=== PATIENT | female | born 1995 | race Caucasian/White ===

== ENCOUNTER 2022-03-07 19:13 | Emergency (ER) | payer SELFPAY ==
[~2022-03-07] VITALS: Ht 152.4 cm; Wt 59.0 kg
[2022-03-07 19:15] VITALS: BP 139/79
--- NOTE | 2022-03-07 19:21 | NUR ---
PT ASSISTED TO BED #1
--- NOTE | 2022-03-07 19:21 | NUR ---
TO ER BED 1
[2022-03-07] MEDS ORDERED: MORPHINE SULFATE 4 MG/ML SYR IVP ONE (19:35)
[2022-03-07] MEDS ORDERED: ONDANSETRON 4 MG/2 ML VIAL IVP ONE ×2 (19:35→22:15)
[2022-03-07] MEDS ORDERED: NACL 0.9% 1,000 ML IV ONE ×2 (19:40→21:35)
[2022-03-07] MEDS ORDERED: KETOROLAC 15 MG/ML VIAL IVP ONE (19:40)
[2022-03-07] MEDS ORDERED: diphenhydrAMINE 50 MG/ML VIAL IVP ONE (19:45)
[2022-03-07] MEDS ORDERED: PROCHLORPERAZINE 10 MG/2 ML VIAL IVP ONE (19:45)
[2022-03-07 19:54] LABS: BASOPHILS % (AUTO) 0.5 % (0.0-2.0); EOSINOPHILS % (AUTO) 0.1 % (0.0-4.0); HEMATOCRIT 41.4 % (36-48); HEMOGLOBIN 13.7 g/dL (12.0-16.0); LYMPHOCYTES # (AUTO) 0.8 K/uL (2.5-16.5); LYMPHOCYTES % (AUTO) 7.8 % (20.5-51.1); MEAN CORPUSCULAR HEMOGLOBIN 27 pg (27-31); MEAN CORPUSCULAR HGB CONC 33 g/dL (33-37); MEAN CORPUSCULAR VOLUME 82.5 fL (80-94); MONOCYTES # (AUTO) 0.5 K/uL (0.8-1.0); MONOCYTES % (AUTO) 4.7 % (1.7-9.3); NEUTROPHILS # (AUTO) 8.8 K/uL (1.8-7.7); NEUTROPHILS % (AUTO) 86.9 % (42.2-75.2); PLATELET COUNT (AUTO) 213 K/uL (140-450); RED BLOOD CELL COUNT(AUTO) 5.02 MIL/uL (4.20-5.40); RED CELL DISTRIBUTION WIDTH 14.3 % (11.6-13.7); WHITE BLOOD COUNT (AUTO) 10.2 K/uL (4.8-10.8)
--- NOTE | 2022-03-07 20:07 | NUR ---
27 yo/f presents to ED w c/o n/v x approx 10 times, + generalized abdominal pain 8/10 constant non-rad x1 day non-tender, chills. Pt denies any fevers, diarhhea, blood in emesis, chest pain, or sob. Pmh: denies allergies: denies
[2022-03-07 20:10] LABS: ALBUMIN 4.3 g/dL (3.4-5.0); ANION GAP 17.7 (8-16); CARBON DIOXIDE 22.7 mmol/L (21-32); CREATININE 0.7 mg/dL (0.6-1.3); POTASSIUM 3.4 mmol/L (3.5-5.1); TOTAL BILIRUBIN 0.4 mg/dL (0.0-1.0)
[2022-03-07 20:27] LABS: APPEARANCE,URINE CLEAR (CLEAR); BLOOD, URINE NEGATIVE (NEGATIVE); COLOR,URINE AMBER (YELLOW); UGLUCOSE NEGATIVE (NEGATIVE)
[2022-03-07 20:28] LABS: BILIRUBIN,URINE NEGATIVE (NEGATIVE); LEUKOCYTE ESTERASE ,URINE NEGATIVE (NEGATIVE); NITRITE, URINE NEGATIVE (NEGATIVE)
--- NOTE | 2022-03-07 21:27 | NUR ---
pt appears to be restin comfortably in bed in supine position w breathing even and unlabored, eyes closed. pt mother at bedside. will continue to monitor.
[2022-03-07] MEDS ORDERED: HALOPERIDOL IM 5 MG/ML VIAL IVP ONE (21:35)
--- NOTE | 2022-03-07 21:57 | NUR ---
pt reports abdominal pain has resolved, but has ongoing nausea, no vomiting. pt medicated recently for nausea.
[2022-03-07] MEDS ORDERED: PROC-62 PO (22:00)
--- NOTE | 2022-03-07 22:52 | NUR ---
pt reports feeling better, no nausea or pain. refused zofran.
[2022-03-07 22:53] VITALS: BP 124/84
--- NOTE | 2022-03-07 22:53 | NUR ---
Patient discharged with v/s stable. Written and verbal after care instructions given and explained. Patient alert, oriented and verbalized understanding of instructions. Ambulatory with steady gait. All questions addressed prior to discharge. ID band removed. Patient advised to follow up with PMD. Rx of COMPAZINE given. Patient educated on indication of medication including possible reaction and side effects. Opportunity to ask questions provided and answered.
== END 2022-03-07 22:53 | disposition home or self-care (01) ==
LOC: MED 19:13
DX: R11.2 Nausea with vomiting, unspecified (principal); R10.33 Periumbilical pain; F12.90 Cannabis use, unspecified, uncomplicated; Z79.899 Other long term (current) drug therapy
CPT/HCPCS: 36415; 80053; 81003; 81025; 82150; 83690; 84703; 85025; 96361; 96374; 96375; 99284; J0780; J1200; J1630; J1885; J7030